=== PATIENT | female | born 1940 | race Caucasian/White ===

== ENCOUNTER 2017-10-14 14:24 | Emergency (ER) | payer OTHER, MEDICARE ==
[~2017-10-14] VITALS: Ht 162.6 cm; Wt 56.7 kg
--- NOTE | ~2017-10-14 | EKG ---
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 : 1940 Requested By: Akanksha Yanez Order Number: [id number] MD: Brandon Montoya Measurements Intervals [place] Rate: 58 P: 51 [place]: 215 QRS: -30 QRSD: 102 T: 34 QT: 440 QTc: 433 Interpretive Statements Sinus rhythm Borderline prolonged [place] interval Probable left atrial enlargement Abnormal R-wave progression, late transition LVH with secondary repolarization abnormality No previous ECG available for comparison Electronically Signed On 10-15-2017 8:26:06 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
[~2017-10-14 14:24] MED LIST: AUGMENTIN 875875 MG PO; NEXIUM; ZOCOR
[2017-10-14 15:08] LABS: ABSOLUTE NEUTROPHILS 5.6 thou/uL (1.4-8.2); BASOPHILS 0.6 % (0.0-2.0); EOSINOPHILS 1.2 % (0.0-3.0); HEMATOCRIT 42.4 % (37.0-47.0); HEMOGLOBIN 14.5 gm/dL (12.0-15.0); LYMPHOCYTES 11.6 % (24.0-44.0); MCH 32.2 pg (26.0-34.0); MCHC 34.2 g/dL (28.0-37.0); MCV 94.2 fL (80.0-100.0); MONOCYTES 8.6 % (1.0-8.0); PLATELET COUNT 142 thou/uL (150-400); RDW 13.1 % (10.5-14.5); WBC 7.1 thou/uL (4.0-11.0)
[2017-10-14 15:16] LABS: CALCIUM 9.1 mg/dL (8.5-10.1); CREATININE 0.8 mg/dL (0.6-1.0); MAGNESIUM 1.9 mg/dL (1.8-2.4); POTASSIUM 3.6 mmol/L (3.5-5.1)
[2017-10-14 16:22] LABS: URINE BILIRUBIN NEGATIVE (Negative); URINE BLOOD TRACE (Negative); URINE CLARITY CLEAR; URINE COLOR YELLOW; URINE GLUCOSE-RANDOM* NEGATIVE (Negative); URINE KETONES NEGATIVE (Negative); URINE LEUKOCYTES-REFLEX NEGATIVE (Negative); URINE NITRITE-REFLEX NEGATIVE (Negative); URINE PROTEIN (DIPSTICK) NEGATIVE (Negative); URINE UROBILINOGEN 0.2 E.U./dl (0.2-1.0)
== END 2017-10-14 17:35 | disposition home or self-care (01) ==
LOC: ER 14:24
PROVIDERS: Emergency Medicine
DX: R20.0 Anesthesia of skin (principal); M85.80 Other specified disorders of bone density and structure, unspecified site; Z90.710 Acquired absence of both cervix and uterus

== ENCOUNTER 2018-07-07 20:38 | Emergency (ER) | payer OTHER, MEDICARE ==
[~2018-07-07] VITALS: Ht 157.5 cm; Wt 47.6 kg
--- NOTE | ~2018-07-07 | EKG ---
[address] [place] [place] [address] ELECTROCARDIOGRAM REPORT Name: HOLA BUNDY Room #: [facility]#: [id number] Admission: 07/07/18 Attend Phys: Discharge: 07/08/18 Date of : 42 Report #: [id number] THIS REPORT FOR: //name// [facility] ED Test Date: 2018-07-07 Test Time: 22:08:41 Pat Name: HOLA BUNDY Department: Room: Gender: F Rn Building: jones : 1940 Requested By: Order Number: [id number] MD: Brandon Montoya Measurements Intervals [place] Rate: 65 P: 61 [place]: 181 QRS: 15 QRSD: 111 T: 3 QT: 455 QTc: 474 Interpretive Statements Sinus rhythm Borderline T abnormalities, lateral leads No previous ECG available for comparison Electronically Signed On 07-11-2018 17:06:40 CDT by Brandon Montoya [email or web address] <ELECTRONICALLY SIGNED> By: Brandon Montoya MD 07/11/18 1706 2208 07 MD KARLIE Sadler
--- NOTE | ~2018-07-07 | EKG ---
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1940 Requested By: Bree Cox Order Number: [id number] MD: Brandon Montoya Measurements Intervals [place] Rate: 67 P: 84 [place]: 210 QRS: 35 QRSD: 110 T: 103 QT: 444 QTc: 469 Interpretive Statements Sinus rhythm Borderline low voltage, extremity leads Abnormal inferior Q waves Borderline repolarization abnormality Compared to ECG 10/14/2017 14:43:25 Inferior Q waves now present Q waves now present Left ventricular hypertrophy no longer present Electronically Signed On 07-11-2018 17:06:24 CDT by Brandon Montoya [email or web address] <ELECTRONICALLY SIGNED> By: Brandon Montoya MD 07/11/18 1706 Brandon Montoya MD /EPI
[2018-07-07 21:21] LABS: ABSOLUTE NEUTROPHILS 13.2 thou/uL (1.4-8.2); BASOPHILS 0.2 % (0.0-2.0); EOSINOPHILS 0.2 % (0.0-3.0); HEMATOCRIT 43.3 % (37.0-47.0); HEMOGLOBIN 14.7 gm/dL (12.0-15.0); LYMPHOCYTES 9.6 % (24.0-44.0); MCHC 33.9 g/dL (28.0-37.0); MCV 94.5 fL (80.0-100.0); MONOCYTES 6.3 % (1.0-8.0); PLATELET COUNT 121 thou/uL (150-400); POLYS 83.7 % (36.0-66.0); RBC 4.58 mil/uL (4.20-5.00); RDW 13.4 % (10.5-14.5); WBC 15.7 thou/uL (4.0-11.0)
[2018-07-07 21:26] LABS: ANION GAP 16 mmol/L (7-16); BUN 30 mg/dL (7-18); CALCIUM 9.6 mg/dL (8.5-10.1); CHLORIDE 103 mmol/L (98-107); CO2 21 mmol/L (21-32); CREATININE 1.2 mg/dL (0.6-1.0); GLUCOSE 254 mg/dL (74-106); SODIUM 140 mmol/L (136-145)
[2018-07-07 21:28] LABS: POTASSIUM 2.8 mmol/L (3.5-5.1)
[2018-07-07 21:35] LABS: ALBUMIN 3.6 g/dL (3.4-5.0); LIPASE 150 U/L (73-393); SGOT 69 U/L (15-37); SGPT 59 U/L (30-65); TOTAL BILIRUBIN 1.4 mg/dL (<0.1-1.0); TOTAL PROTEIN 6.5 g/dL (6.4-8.2); TROPONIN-I <0.06 ng/mL (<0.06)
[2018-07-07 21:39] LABS: URINE BILIRUBIN NEGATIVE (Negative); URINE BLOOD 2+ (Negative); URINE CLARITY CLEAR; URINE COLOR YELLOW; URINE GLUCOSE-RANDOM* NEGATIVE (Negative); URINE KETONES 1+ (Negative); URINE LEUKOCYTES-REFLEX NEGATIVE (Negative); URINE NITRITE-REFLEX NEGATIVE (Negative); URINE PROTEIN (DIPSTICK) 2+ (Negative); URINE SPECIFIC GRAVITY >= 1.030 (1.005-1.035); URINE UROBILINOGEN 0.2 E.U./dl (0.2-1.0)
[2018-07-07 21:47] LABS: AMORPHOUS URATES Many /LPF (None Seen); BACTERIA-REFLEX None Seen /HPF (None Seen); CASTS None Seen /LPF (None Seen); SQUAMOUS 4-10 Moderate /LPF (0-3); URINE RBC 3-10 Few /HPF (0-2); URINE WBC-REFLEX 0-5 Rare /HPF (0-5)
[2018-07-08 00:13] VITALS: BP 111/62
== END 2018-07-08 00:19 | disposition short-term general hospital (02) ==
LOC: ER 20:38
PROVIDERS: Student in an Organized Health Care Education/Training Program
DX: A41.89 Other specified sepsis (principal); I71.01 Dissection of thoracic aorta; R41.82 Altered mental status, unspecified; R19.7 Diarrhea, unspecified; E87.6 Hypokalemia; E87.2 Acidosis; R11.2 Nausea with vomiting, unspecified; M85.80 Other specified disorders of bone density and structure, unspecified site; Z90.710 Acquired absence of both cervix and uterus; Z98.890 Other specified postprocedural states

== ENCOUNTER 2021-06-19 18:17 | Emergency (ER) | payer OTHER, MEDICARE ==
[~2021-06-19] VITALS: Ht 160 cm; Wt 45.4 kg
[2021-06-19 18:21] VITALS: BP 125/69
[2021-06-19] MEDS ORDERED: HYDROCHLOROTH12.5 M1 PO (18:36)
[2021-06-19] MEDS ORDERED: INTERMEZZO3.5 MG PO (18:36)
[2021-06-19] MEDS ORDERED: TOPROL XL25 MG PO (18:36)
[2021-06-19] MEDS ORDERED: SIMVASTATIN80 MG PO (18:37)
[2021-06-19] MEDS ORDERED: ASA81BEC PO (18:37)
[2021-06-19] MEDS ORDERED: DULOXETINE HCL30 MG PO (18:37)
[2021-06-19] MEDS ORDERED: [UNRECOGNIZED DRUG - OTHER] PO (18:39)
[2021-06-19] MEDS ORDERED: APAP W/CODEINE1 TA2 PO (19:19)
== END 2021-06-19 19:51 | disposition home or self-care (01) ==
LOC: ER 18:17
DX: S20.212A Contusion of left front wall of thorax, initial encounter (principal); Z90.710 Acquired absence of both cervix and uterus; Z98.890 Other specified postprocedural states; Z79.82 Long term (current) use of aspirin; Z79.891 Long term (current) use of opiate analgesic; Z79.899 Other long term (current) drug therapy; W10.9XXA Fall (on) (from) unspecified stairs and steps, initial encounter; Y93.89 Activity, other specified; Y92.89 Other specified places as the place of occurrence of the external cause; Y99.8 Other external cause status